=== PATIENT | male | born 1945 | race Native Hawaiian/Other Pacific Islander ===

== ENCOUNTER 2016-09-18 10:39 | Outpatient (CLI) | payer OTHER ==
[2016-09-18 11:00] LABS: PLATELET COUNT 271 K/uL (142-355)
== END 2016-09-18 19:08 | disposition home or self-care (01) ==
LOC: LABW 10:39
PROVIDERS: Internal Medicine
DX: M35.3 Polymyalgia rheumatica (principal)
CPT/HCPCS: 36415; 80053; 85027; 85651; 86140

== ENCOUNTER 2016-10-04 15:36 | Outpatient (CLI) | payer OTHER | END 2016-10-04 17:00 | disposition home or self-care (01) | LOC: RAD 15:36 | DX: M17.12 Unilateral primary osteoarthritis, left knee (principal); M06.4 Inflammatory polyarthropathy ==

== ENCOUNTER 2017-06-18 09:29 | Outpatient (CLI) | payer OTHER ==
[2017-06-18 10:14] LABS: PLATELET COUNT 227 K/uL (142-355)
[2017-06-18 10:25] LABS: POTASSIUM 4.6 mmol/L (3.6-5.2)
== END 2017-06-18 23:00 | disposition home or self-care (01) ==
LOC: LABW 09:29
PROVIDERS: Internal Medicine
DX: E11.9 Type 2 diabetes mellitus without complications (principal); Z12.5 Encounter for screening for malignant neoplasm of prostate
CPT/HCPCS: 36415; 80053; 80061; 81000; 82043; 82570; 83036; 84153; 84439; 84443; 85027

== ENCOUNTER 2017-11-14 12:03 | Outpatient (CLI) | payer OTHER ==
[2017-11-14 12:33] LABS: PLATELET COUNT 236 K/uL (142-355)
[2017-11-14 12:46] LABS: POTASSIUM 4.3 mmol/L (3.6-5.2)
== END 2017-11-14 19:12 | disposition home or self-care (01) ==
LOC: LABW 12:03
PROVIDERS: Internal Medicine
DX: Z00.00 Encounter for general adult medical examination without abnormal findings (principal); E11.9 Type 2 diabetes mellitus without complications; Z12.5 Encounter for screening for malignant neoplasm of prostate
CPT/HCPCS: 36415; 80053; 80061; 81000; 83036; 84443; 85027

== ENCOUNTER 2017-12-09 08:25 | Outpatient (CLI) | payer OTHER | END 2017-12-09 19:52 | disposition home or self-care (01) | LOC: US 08:25 | DX: Z13.6 Encounter for screening for cardiovascular disorders (principal); I25.10 Atherosclerotic heart disease of native coronary artery without angina pectoris ==

== ENCOUNTER 2018-03-11 15:05 | Outpatient (CLI) | payer OTHER | END 2018-03-11 21:27 | disposition home or self-care (01) | LOC: RESP 15:05 | DX: R00.2 Palpitations (principal) | CPT/HCPCS: 93225 ==

== ENCOUNTER 2018-04-08 10:00 | Outpatient (CLI) | payer OTHER | END 2018-04-08 22:24 | disposition home or self-care (01) | LOC: RESP 10:00 | DX: R07.89 Other chest pain (principal) ==